=== PATIENT | male | born 1970 | race Caucasian/White ===

== ENCOUNTER 2018-11-23 08:10 | Outpatient (CLI) | payer OTHER ==
[~2018-11-23 08:10] MED LIST: CHOLESTYRAMINE P4 GM PO; INTESTINEX1 CA1 PO; TRAM1TAB98 PO
== END 2018-11-23 09:18 | disposition home or self-care (01) ==
LOC: NUCLEAR 08:10
DX: I73.9 Peripheral vascular disease, unspecified (principal)

== ENCOUNTER 2018-11-25 08:35 | Outpatient (CLI) | payer OTHER | END 2018-11-25 09:00 | disposition home or self-care (01) | LOC: NUCLEAR 08:35 | DX: I10 Essential (primary) hypertension (principal); I87.2 Venous insufficiency (chronic) (peripheral) ==